=== PATIENT | female | born 1995 | race Asian ===

== ENCOUNTER 2021-10-06 16:21 | Emergency (ER) | payer OTHER ==
[~2021-10-06] VITALS: Ht 172.7 cm; Wt 88.6 kg
[2021-10-06] MEDS ORDERED: PREN-48 PO (17:40)
--- NOTE | 2021-10-06 18:18 | RAD ---
EXAM: AP View of the chest DATE: 10/06/2021 6:08 PM INDICATION: Reason: shortness of breath / Spl. Instructions: / History: COMPARISON: No Prior FINDINGS: The heart is not enlarged. Mediastinal and hilar contours are normal. Patchy right perihilar and bilateral lung base airspace opacities likely consolidative process such a s pneumonia. No pleural effusion or pneumothorax. IMPRESSION: Patchy right perihilar and bilateral lung base airspace opacities likely consolidative process such a s pneumonia. Electronically signed by: Maksim Bray MD (10/06/2021 6:16 PM) NOHEMI
--- NOTE | 2021-10-06 18:42 | PHYS DOC ---
Past History Past Surgical History: Other Additional Past Surgical Histo: Ankle surgery (left) (ANDRÉS MARTINEZ APRN) General Adult EDM: Chief Complaint: DYSPNEA/RESPIRATOY DISTRESS HPI: HPI: Patient is a 26-year-old female that presents today with increased shortness of air and difficulty breathing. Patient states she she started having Covid-like symptoms on September 26, 2021, patient was seen at the [facility] today and had a positive Covid test, they advised her to come to the emergency department for further evaluation due to difficulty breathing. Patient sees a housekeeper cleaning cooking at [facility] for her , she is 19 weeks 4 days according to the EDC that she gave us of February 26, 2022. (ANDRÉS MARTINEZ APRN) Review of Systems: Review of Systems: Constitutional: fever or chills Eyes: Denies change in visual acuity HENT: Denies nasal congestion or sore throat Respiratory: cough or shortness of breath Cardiovascular: Denies chest pain or edema GI: Denies abdominal pain, nausea, vomiting, bloody stools or diarrhea : Denies dysuria Musculoskeletal: Denies back pain or joint pain Integument: Denies rash Neurologic: Denies headache, focal weakness or sensory changes Endocrine: Denies polyuria or polydipsia Lymphatic: Denies swollen glands Psychiatric: Denies depression or anxiety (ANDRÉS MARTINEZ APRN) Current Medications: Current Meds: Current Medications Medications (Trade) Dose Ordered Sig/Alli Start Time Stop Time Status Last Admin Dose Admin Sodium Chloride 1,000 ml @ 1,000 mls/hr 1X ONCE 10/06/21 18:45 10/06/21 19:44 (ANDRÉS MARTINEZ APRN) Allergies: Allergies: Allergies Coded Allergies Type Severity Reaction Last Updated Verified No Known Drug Allergies 10/06/21 No (ANDRÉS MARTINEZ APRN) Physical Exam: PE: Constitutional: Well developed, well nourished, mild distress, non-toxic appearance. [] HENT: Normocephalic, atraumatic, bilateral external ears normal, oropharynx moist, no oral exudates, nose normal. [] Eyes: PERRLA, EOMI, conjunctiva normal, no discharge. [] Neck: Normal range of motion, no tenderness, supple, no stridor. [] Cardiovascular:Heart rate regular rhythm, no murmur [] Lungs & Thorax: Bilateral breath sounds diminished, cough noted Abdomen: Bowel sounds normal, soft, no tenderness, no masses, no pulsatile masses, patient reports movement has been noted today. [] Skin: Warm, dry, no erythema, no rash. [] Back: No tenderness, no CVA tenderness. [] Extremities: No tenderness, no cyanosis, no clubbing, ROM intact, no edema. [] Neurologic: Alert and oriented X 3, normal motor function, normal sensory function, no focal deficits noted. [] Psychologic: Affect normal, judgement normal, mood normal. [] (ANDRÉS MARTINEZ APRN) Current Patient Data: Vital Signs: Vital Signs Date Time Temp Pulse Resp B/P (MAP) Pulse Ox O2 Delivery O2 Flow Rate FiO2 10/06/21 17:32 100.3 106 20 128/76 (93) 97 Room Air 0 (ANDRÉS MARTINEZ APRN) EKG: EKG: [] (ANDRÉS MARTINEZ APRN) Radiology/Procedures: Radiology/Procedures: [REASON: shortness of breath PROCEDURE: CHEST AP ONLY EXAM: AP View of the chest DATE: 10/06/2021 6:08 PM INDICATION: Reason: shortness of breath / Spl. Instructions: / History: COMPARISON: No Prior FINDINGS: The heart is not enlarged. Mediastinal and hilar contours are normal. Patchy right perihilar and bilateral lung base airspace opacities likely consolidative process such as pneumonia. No pleural effusion or pneumothorax. IMPRESSION: Patchy right perihilar and bilateral lung base airspace opacities likely consolidative process such as pneumonia. Electronically signed by: Maksim Bray MD (10/06/2021 6:16 PM) [place] ] (ANDRÉS MARTINEZ APRN) Heart Score: C/O Chest Pain: N/A Risk Factors: Risk Factors: DM, Current or recent (<one month) smoker, HTN, HLP, family history of CAD, obesity. Risk Scores: Score 0 - 3: 2.5% MACE over next 6 weeks - Discharge Home Score 4 - 6: 20.3% MACE over next 6 weeks - Admit for Clinical Observation Score 7 - 10: 72.7% MACE over next 6 weeks - Early Invasive Strategies (ANDRÉS MARTINEZ APRN) Course & Med Decision Making: Course & Med Decision Making Pertinent Labs and Imaging studies reviewed. (See chart for details) [1857 heart tones 150, current vital signs are temperature of 99.5,107/61, 104, 96%, 18. Pending Transfer to [facility], (ANDRÉS MARTINEZ APRN) Course & Med Decision Making Patient care was transferred to myself from CHUCK Castañeda at 1900. Received a call back from [facility] transfer line, who stated patient cannot be accepted on OB floor due to gestational age less than 20 weeks. They are currently closed to other transfers. Will contact hospitalist at [facility] for medical admission and consult with neighborhood aide. (CATRINA BACA) Course & Med Decision Making Did not see or evaluate patient. Did not discuss patient with HARNESS RIGGER. Agree with HARNESS RIGGER's work-up and disposition per note. (BEAU REESE MD) Dragon Disclaimer: Dragon Disclaimer: This electronic medical record was generated, in whole or in part, using a voice recognition dictation system. (ANDRÉS MARTINEZ APRN) Departure Departure: Impression: Primary Impression: Pneumonia due to 2019-nCoV Additional Impression: Qualified Codes: Z3A.19 - 19 weeks gestation of Disposition: 02 SHORT TERM HOSPITAL Condition: GUARDED Referrals: PCP,NO (PCP) ANDRÉS MARTINEZ APRN Oct 06, 2021 18:41 CATRINA BACA Oct 06, 2021 19:25 BEAU REESE MD Oct 06, 2021 19:33
[2021-10-06] MEDS ORDERED: IV NORMAL SALINE 1,000ML 1,000 ML IV ONE (18:45)
[2021-10-06 19:37] LABS: BASO % 0 % (0-3); EOS % 0 % (0-3); HEMATOCRIT 36.4 % (36.0-47.0); HEMOGLOBIN 12.6 g/dL (12.0-15.5); LYMPH # 0.9 x10^3/uL (1.0-4.8); LYMPH % 11 % (24-48); MEAN CORPUSCULAR HEMOGLOBIN 30 pg (25-35); MEAN CORPUSCULAR HGB CONC 35 g/dL (31-37); MEAN CORPUSCULAR VOLUME 86 fL (79-100); MONO # 0.5 x10^3/uL (0.0-1.1); MONO % 5 % (0-9); NEUT # 7.1 x10^3uL (1.8-7.7); NEUT % 84 % (31-73); PLATELET COUNT 195 x10^3/uL (140-400); RED BLOOD COUNT 4.22 x10^6/uL (3.50-5.40); RED CELL DISTRIBUTION WIDTH 13.8 % (11.5-14.5); WHITE BLOOD COUNT 8.5 x10^3/uL (4.0-11.0)
[2021-10-06 19:40] LABS: CALCIUM 8.3 mg/dL (8.5-10.1); CREATININE 0.5 mg/dL (0.6-1.0); GFR 151.6; POTASSIUM 3.2 mmol/L (3.5-5.1)
[2021-10-06 19:46] LABS: ALBUMIN 2.6 g/dL (3.4-5.0); ALBUMIN/GLOBULIN RATIO 0.6 (1.0-1.7); TOTAL BILIRUBIN 0.6 mg/dL (0.2-1.0)
[2021-10-06 20:26] LABS: BACTERIA,URINE 0 /HPF (0-FEW); BILIRUBIN,URINE NEG (NEG); CLARITY,URINE CLEAR; COLOR,URINE YELLOW; GLUCOSE,URINE NEG (NEG); NITRITE,URINE NEG (NEG); RBC,URINE OCC /HPF (0-2); SQUAMOUS EPITHELIAL CELL,UR FEW /LPF; UROBILINOGEN,URINE 0.2 mg/dL (0.2 mg/dL); WBC,URINE OCC /HPF (0-4)
[2021-10-06] MEDS ORDERED: AZITHROMYCIN 250 MG TABLET. PO ONE (22:15)
[2021-10-07] MEDS ORDERED: ACETAMINOPHEN 500 MG TABLET PO ONE (01:45)
[2021-10-07 10:15] VITALS: BP 120/70
== END 2021-10-07 11:59 | disposition left against medical advice (07) ==
LOC: ER 16:21
DX: O98.512 Other viral diseases complicating pregnancy, second trimester (principal); O99.512 Diseases of the respiratory system complicating pregnancy, second trimester; U07.1 COVID-19; J12.82 Pneumonia due to coronavirus disease 2019; Z3A.19 19 weeks gestation of pregnancy
CPT/HCPCS: 36415; 71045; 80053; 81001; 85025; 96360; 99285; J7030